=== PATIENT | female | born 1965 | race African-American/Black ===

== ENCOUNTER → 2019-04-03 | Outpatient (CLI) | payer OTHER ==
[2015-09-25 00:35] VITALS: BP 169/99
--- NOTE | 2019-04-03 15:02 | RAD ---
EXAM: Right knee sonogram. HISTORY: Pain. TECHNIQUE: Sonographic imaging of the right knee at the site of pain along the popliteal fossa was performed. COMPARISON: None. FINDINGS: There is no suspicious finding within the posterior right knee the proximal calf at the site of palpable concern. IMPRESSION: Unremarkable sonographic imaging of the posterior right knee and calf at the site of palpable concern. Electronically signed by: Andreea Robins MD (04/03/2019 2:59 PM) [id number]
== END | disposition home or self-care (01) ==
LOC: US 07:43
PROVIDERS: ATTEND Nurse Practitioner Family
DX: M25.561 Pain in right knee (principal)
CPT/HCPCS: 76881